=== PATIENT | female | born 1990 | race Caucasian/White ===

== ENCOUNTER 2020-02-20 11:13 | Inpatient (IN) ==
[2020-02-20] MEDS ORDERED: BETAMETH SODIUM PHOS/ACETATE 30 MG/5 ML VIAL IM ONE (11:42)
[2020-02-20] MEDS ORDERED: ceFAZolin 2,000 MG in PREMIX 1 EACH IV ONE (12:23)
[2020-02-20] MEDS ORDERED: FAMOTIDINE 20 MG/2 ML VIAL IV ONE (12:23)
[2020-02-20] MEDS ORDERED: CITRIC ACID/SODIUM CITRATE 30 ML UDCUP PO ONE (12:23)
[2020-02-20] MEDS ORDERED: LACTATED RINGERS 1,000 ML IV SCH ×2 (12:30→19:30)
[2020-02-20 13:20] LABS: Basophils % 0.2 % (0.0-0.8); Eosinophils % 0.1 % (0.00-10.9); Hematocrit 34.8 VOL% (35.7-47.0); Hemoglobin 11.9 GM/DL (12.0-16.0); Immature Granulocytes % 1.8 %; Immature Granulocytes Absolute 0.31 #; Lymphocytes # 2.2 10*3/uL (1.4-4.0); Lymphocytes % 12.9 % (21.3-54.2); Mean Corpuscular HGB Conc 34.2 GM/DL (32-36); Mean Corpuscular Volume 91.6 FL (87-102); Mean Platelet Volume 12.9 FL (9.6-12.0); Monocytes % 7.4 % (1.7-12.7); Neutrophils % 77.6 % (38.7-73.9); Platelet Count 217 T/CUMM (130-400); Red Cell Distribution Width 15.1 % (9.3-17.3); White Blood Count 16.9 T/CUMM (4-12)
[2020-02-20] MEDS ORDERED: LACTATED RINGERS 1,000 ML IV ONE (14:00)
[2020-02-20] MEDS ORDERED: OXYTOCIN/LR 20 UNIT/1,000 ML BAG IV ONE ×2 (14:30→19:09)
[2020-02-20] MEDS ORDERED: METHYLERGONOVINE 0.2 MG/1 ML AMP ONE (17:09)
[2020-02-20] MEDS ORDERED: miSOPROStoL 200 MCG TABLET ONE (17:09)
[2020-02-20] MEDS ORDERED: ROPIVACAINE 0.5% 30 ML VIAL ONE (18:47)
[2020-02-20] MEDS ORDERED: PHENYLEPHRINE 1 MG/10 ML SYRINGE IV ONE (18:47)
[2020-02-20] MEDS ORDERED: fentaNYL 100 MCG/2 ML VIAL ONE (18:48)
[2020-02-20] MEDS ORDERED: MORPHINE 10 MG/10 ML VIAL ONE (18:48)
[2020-02-20] MEDS ORDERED: BUPIVACAINE SPINAL 0.75% 2 ML AMP SPINAL ONE (18:48)
[2020-02-20] MEDS ORDERED: ONDANSETRON 4 MG/2 ML VIAL ONE (18:48)
[2020-02-20] MEDS ORDERED: diphenhydrAMINE 50 MG/1 ML VIAL ONE (18:48)
[2020-02-20] MEDS ORDERED: ONDANSETRON 4 MG/2 ML VIAL IV PRN (19:09)
[2020-02-20] MEDS ORDERED: MAGNESIUM HYDROXIDE SUSP 30 ML UDCUP PO PRN (19:09)
[2020-02-20] MEDS ORDERED: RHO(D) IMMUNE GLOBULIN 300 MCG SYRINGE IM ONE (19:09)
[2020-02-20] MEDS ORDERED: ACETAMINOPHEN 325 MG TABLET PO PRN (19:09)
[2020-02-20] MEDS ORDERED: SIMETHICONE CHEW 80 MG TABLET PO PRN (19:09)
[2020-02-20 19:30] LABS: Apearance,Urine CLEAR (Clear); Bilirubin,Urine Negative (Negative); Blood, Urine Small mg/dL (Negative); Glucose,Urine (UA) Negative (Negative); Ketones,Urine 5 mg/dL (Negative); Mucus,Urine Occasional /LPF (Occasional); Nitrite,Urine Negative (Negative); Protein,Urine 30 MG/DL; RBC,Urine 2 /HPF (0-4); Squamous Epithelial Cell,Urine Occasional /HPF (0-10); Urine Color Straw (Yellow); Urine Specific Gravity 1.008 (1.001-1.035); Urine Urobilinogen < 2.0 EU/DL (0.2-1.0)
[2020-02-20] MEDS ORDERED: diphenhydrAMINE 50 MG/1 ML VIAL IV ONE (19:57)
[2020-02-20] MEDS: DOCUSATE SODIUM 100 MG CAPSULE PO SCH (22:08)
[2020-02-20] MEDS ORDERED: diphenhydrAMINE 2% CREAM 28 GM TUBE TOP PRN (23:26)
[2020-02-20] MEDS ORDERED: hydrOXYzine HCL 25 MG/1 ML VIAL IM PRN (23:26)
[2020-02-21] MEDS ORDERED: ceFAZolin 1,000 MG in SYRINGE 1 EACH IV SCH ×2 (01:00→12:30)
[2020-02-21 02:04] LABS: Basophils # 0.1 10*3/uL (0.0-0.2); Basophils % 0.2 % (0.0-0.8); Hematocrit 32.1 VOL% (35.7-47.0); Hemoglobin 10.5 GM/DL (12.0-16.0); Immature Granulocytes % 1.2 %; Immature Granulocytes Absolute 0.24 #; Lymphocytes # 1.5 10*3/uL (1.4-4.0); Lymphocytes % 7.4 % (21.3-54.2); Mean Corpuscular HGB Conc 32.7 GM/DL (32-36); Mean Corpuscular Volume 93.9 FL (87-102); Mean Platelet Volume 13.1 FL (9.6-12.0); Monocytes % 5.4 % (1.7-12.7); Neutrophils % 85.8 % (38.7-73.9); Platelet Count 201 T/CUMM (130-400); Red Blood Count 3.42 MC/CUMM (3.8-5.5); Red Cell Distribution Width 15.2 % (9.3-17.3); White Blood Count 20.7 T/CUMM (4-12)
[2020-02-21 04:13] LABS: Hypochromasia 2+; Platelet Estimate Normal
[2020-02-21] MEDS: IBUPROFEN 800 MG TABLET PO PRN ×2 (06:25→13:15)
[2020-02-21] MEDS: DOCUSATE SODIUM 100 MG CAPSULE PO SCH ×2 (09:20→22:06)
[2020-02-21] MEDS: MULTIVITAMIN (PRENATAL) TABLET PO SCH (09:20)
[2020-02-21 10:05] LABS: Basophils % 0.1 % (0.0-0.8); Hematocrit 29.6 VOL% (35.7-47.0); Hemoglobin 9.7 GM/DL (12.0-16.0); Immature Granulocytes % 1.4 %; Immature Granulocytes Absolute 0.27 #; Lymphocytes # 2.1 10*3/uL (1.4-4.0); Lymphocytes % 10.6 % (21.3-54.2); Mean Corpuscular HGB Conc 32.8 GM/DL (32-36); Mean Corpuscular Volume 91.9 FL (87-102); Mean Platelet Volume 12.4 FL (9.6-12.0); Monocytes % 7.8 % (1.7-12.7); Neutrophils % 80.1 % (38.7-73.9); Platelet Count 194 T/CUMM (130-400); Red Blood Count 3.22 MC/CUMM (3.8-5.5); Red Cell Distribution Width 15.1 % (9.3-17.3); White Blood Count 19.6 T/CUMM (4-12)
[2020-02-21] MEDS: oxyCODONE/ACETAMINOPHEN 5-325 MG TABLET PO PRN ×2 (13:15→22:05)
[2020-02-22] MEDS: oxyCODONE/ACETAMINOPHEN 5-325 MG TABLET PO PRN ×2 (02:35→22:17)
[2020-02-22] MEDS: MULTIVITAMIN (PRENATAL) TABLET PO SCH (08:38)
[2020-02-22] MEDS: DOCUSATE SODIUM 100 MG CAPSULE PO SCH ×2 (08:38→20:38)
[2020-02-22] MEDS: IBUPROFEN 800 MG TABLET PO PRN ×2 (08:55→22:17)
[2020-02-23] MEDS: oxyCODONE/ACETAMINOPHEN 5-325 MG TABLET PO PRN (04:10)
[2020-02-23 07:14] VITALS: BP 119/67
[2020-02-23] MEDS: MULTIVITAMIN (PRENATAL) TABLET PO SCH (09:05)
[2020-02-23] MEDS: DOCUSATE SODIUM 100 MG CAPSULE PO SCH (09:05)
== END 2020-02-23 16:20 | disposition home or self-care (01) | DRG 788 ==
LOC: N.LDOUT 11:13 → N.LD 11:54 → N.OB 21:40
PROVIDERS: ADMIT Obstetrics & Gynecology; ATTEND Obstetrics & Gynecology
PROC: LDCSECT (ICD-10-PCS; 2020-02-20 17:30)